=== PATIENT | female | born 1955 | race Caucasian/White ===

== ENCOUNTER 2018-02-16 11:57 | Inpatient (IN) | payer SELFPAY ==
[~2018-02-16] VITALS: Ht 167.6 cm; Wt 87.5 kg
[2018-02-16 13:27] LABS: HEMOGLOBIN 13.6 G/DL (11.9-15.5); MCH 31.8 PG (29.0-34.0); MCV 93.5 FL (83-99); PLATELET COUNT 269 K/uL (156-360); RBC DIS.WIDTH-CV 13.2 % (11.8-14.6); RBC DIS.WIDTH-SD 44.9 % (39-53); RED BLOOD COUNT 4.28 M/uL (3.80-5.20); WHITE BLOOD COUNT 10.1 K/uL (4.1-10.2)
[2018-02-16 13:33] LABS: INTER. NORMALIZED RATIO 1.2
[2018-02-16 13:35] LABS: PTT 29.1 SEC (25-37)
[2018-02-16 13:39] LABS: ALBUMIN 4.2 g/dL (3.2-4.8)
[2018-02-16 13:40] LABS: CHLORIDE 97 mEq/L (99-109); POTASSIUM 4.3 mEq/L (3.7-5.4); SODIUM 137 mEq/L (136-147)
[2018-02-16 13:42] LABS: GLUCOSE 110 mg/dL (70-99)
[2018-02-16 13:44] LABS: TOTAL BILIRUBIN 1.3 mg/dL (0.0-1.0)
[2018-02-16 13:45] LABS: ALKALINE PHOSPHATASE 99 IU/L (3-129)
[2018-02-16 13:46] LABS: CREATININE 0.8 mg/dL (0.6-1.3); GFR ESTIMATE (CALCULATED) > 59 mL/min/
[2018-02-16 13:47] LABS: AST (GOT) 46 IU/L (2-34); UREA NITROGEN (BUN) 15 mg/dL (9-23)
[2018-02-16 13:48] LABS: ALT (GPT) 38 IU/L (3-49)
[2018-02-16] MEDS ORDERED: ULTRAM50 MG PO (14:00)
[2018-02-16] MEDS ORDERED: FLEXERIL10 MG PO (14:00)
[2018-02-16] MEDS ORDERED: COLACE100 MG PO (14:01)
[2018-02-16] MEDS ORDERED: ALEVE220 MG PO (14:02)
[2018-02-16] MEDS ORDERED: BIOFREEZE TP (14:02)
[2018-02-16] MEDS ORDERED: ALEVE PM CAPLE1 EACH PO (14:03)
[2018-02-16 14:34] LABS: APPEARANCE SL.HAZY ((CLEAR)); BILIRUBIN NEGATIVE; BLOOD SMALL; COLOR YELLOW ((YELLOW)); GLUCOSE (STRIP) NEGATIVE; KETONES 5; LEUKOCYTES NEGATIVE; NITRITE NEGATIVE; PROTEIN (STRIP) NEGATIVE
[2018-02-16 14:43] LABS: BACTERIA NONE SEEN /HPF; EPITHELIAL CELLS RARE /HPF; MUCUS TRACE /LPF; RED BLOOD CELLS 0-5 /HPF (0-5); UCUL ADDED? NO; WHITE BLOOD CELLS 0-5 /HPF (0-5)
[2018-02-16 19:43] VITALS: BP 153/80
[2018-02-16 23:55] VITALS: BP 107/60
[2018-02-17 03:46] VITALS: BP 120/58
[2018-02-17 05:56] LABS: HEMATOCRIT 35.2 % (36.0-46.0); HEMOGLOBIN 11.7 G/DL (11.9-15.5); MCH 31.3 PG (29.0-34.0); MCHC 33.2 G/DL (30.0-36.0); MCV 94.1 FL (83-99); PLATELET COUNT 274 K/uL (156-360); RBC DIS.WIDTH-CV 13.1 % (11.8-14.6); RED BLOOD COUNT 3.74 M/uL (3.80-5.20); WHITE BLOOD COUNT 6.1 K/uL (4.1-10.2)
[2018-02-17 06:20] LABS: A/G RATIO 1.1 (1.1-1.8); ALBUMIN 3.3 G/DL (3.2-4.8); ALBUMIN 3.3 G/DL (3.4-5.0); ALKALINE PHOSPHATASE 77 IU/L (3-129); ALT (GPT) 25 IU/L (3-49); AST (GOT) 29 IU/L (2-34); CHLORIDE 103 MEQ/L (99-109); CREATININE 0.6 MG/DL (0.6-1.3); GFR ESTIMATE (CALCULATED) > 59 mL/min/; GLOBULINS 3.1 G/DL (2.3-3.5); GLUCOSE 140 mg/dL (70-99); IMMUNOGLOBULIN G 1208 MG/DL (650-1600); IMMUNOGLOBULIN M 84 MG/DL (50-300); POTASSIUM 4.5 MEQ/L (3.7-5.4); SODIUM 139 MEQ/L (136-147); TOTAL BILIRUBIN 0.7 MG/DL (0.0-1.0); TOTAL PROTEIN 6.4 G/DL (6.4-8.2); TOTAL PROTEIN 6.4 G/DL (6.4-8.3); UREA NITROGEN (BUN) 14 mg/dL (9-23)
[2018-02-17 08:00] VITALS: BP 127/65
[2018-02-17 11:36] VITALS: BP 130/72
[2018-02-17 17:50] VITALS: BP 140/85
[2018-02-18] VITALS (7 sets, daily range): BP systolic 106–133; BP diastolic 56–81
[2018-02-18 07:59] LABS: HEMATOCRIT 31.4 % (36.0-46.0); HEMOGLOBIN 10.5 G/DL (11.9-15.5); MCH 31.4 PG (29.0-34.0); MCHC 33.4 G/DL (30.0-36.0); PLATELET COUNT 290 K/uL (156-360); RBC DIS.WIDTH-CV 13.3 % (11.8-14.6); RBC DIS.WIDTH-SD 45.9 % (39-53); RED BLOOD COUNT 3.34 M/uL (3.80-5.20); WHITE BLOOD COUNT 11.8 K/uL (4.1-10.2)
[2018-02-18 08:24] LABS: CHLORIDE 106 MEQ/L (99-109); CREATININE 0.7 MG/DL (0.6-1.3); GFR ESTIMATE (CALCULATED) > 59 mL/min/; GLUCOSE 138 mg/dL (70-99); POTASSIUM 4.4 MEQ/L (3.7-5.4); SODIUM 137 MEQ/L (136-147); UREA NITROGEN (BUN) 20 mg/dL (9-23)
[2018-02-18 14:23] LABS: ALBUMIN 3.01 G/DL (3.6-4.9); ALPHA-1 GLOBULIN 0.32 G/DL (0.15-0.40); BETA-GLOBULIN 0.97 G/DL (0.65-1.15)
[2018-02-19 00:06] VITALS: BP 126/75
[2018-02-19 04:27] VITALS: BP 138/90
[2018-02-19 08:09] VITALS: BP 116/64
[2018-02-19 17:22] VITALS: BP 138/77
[2018-02-20 00:03] VITALS: BP 123/80
[2018-02-20 04:30] VITALS: BP 168/86
[2018-02-20 07:41] VITALS: BP 103/61
[2018-02-20 12:00] VITALS: BP 131/80
[2018-02-20 19:13] VITALS: BP 130/67
[2018-02-21 00:03] VITALS: BP 116/75
[2018-02-21 03:34] VITALS: BP 138/84
[2018-02-21 06:23] LABS: CHLORIDE 103 MEQ/L (99-109); CREATININE 0.6 MG/DL (0.6-1.3); GFR ESTIMATE (CALCULATED) > 59 mL/min/; GLUCOSE 133 mg/dL (70-99); POTASSIUM 4.2 MEQ/L (3.7-5.4); SODIUM 138 MEQ/L (136-147); UREA NITROGEN (BUN) 20 mg/dL (9-23)
[2018-02-21 07:57] VITALS: BP 166/95
[2018-02-21 08:16] LABS: BASOPHIL (%) 0.1 % (0-1); EOSINOPHIL (%) 0 % (0-5); HEMATOCRIT 32.9 % (36.0-46.0); LYMPHOCYTE (%) 13.1 % (15-42); MCH 31.4 PG (29.0-34.0); MCHC 33.4 G/DL (30.0-36.0); MONOCYTE (%) 5.7 % (3-12); MONOCYTE COUNT 0.4 K/uL (0-0.8); NEUTROPHIL (%) 80.1 % (45-76); NEUTROPHIL COUNT 5.8 K/uL (1.8-6.4); PLATELET COUNT 244 K/uL (156-360); RBC DIS.WIDTH-CV 13.1 % (11.8-14.6); WHITE BLOOD COUNT 7.2 K/uL (4.1-10.2)
[2018-02-21 09:14] LABS: BASOPHIL (%) 0 % (0-1); EOSINOPHIL (%) 0 % (0-5); HEMATOCRIT 33.3 % (36.0-46.0); HEMOGLOBIN 11.1 G/DL (11.9-15.5); IMMATURE GRANULOCYTE (%) 1.5 % (0.0-0.7); LYMPHOCYTE (%) 13.2 % (15-42); MCH 31.1 PG (29.0-34.0); MCHC 33.3 G/DL (30.0-36.0); MCV 93.3 FL (83-99); MONOCYTE (%) 5.3 % (3-12); MONOCYTE COUNT 0.4 K/uL (0-0.8); NEUTROPHIL COUNT 5.8 K/uL (1.8-6.4); PLATELET COUNT 244 K/uL (156-360); RBC DIS.WIDTH-SD 44.5 % (39-53); RED BLOOD COUNT 3.57 M/uL (3.80-5.20); WHITE BLOOD COUNT 7.2 K/uL (4.1-10.2)
[2018-02-21 11:46] VITALS: BP 152/95
[2018-02-21 16:18] VITALS: BP 135/89
[2018-02-22 00:18] VITALS: BP 118/89
[2018-02-22 03:53] VITALS: BP 135/76
[2018-02-22 12:08] VITALS: BP 142/90
[2018-02-22 15:51] VITALS: BP 126/77
[2018-02-22 23:23] VITALS: BP 140/84
[2018-02-23 08:02] VITALS: BP 139/87
[2018-02-23 12:00] VITALS: BP 147/88
[2018-02-23 16:56] VITALS: BP 131/74
[2018-02-23 18:22] LABS: HEMATOCRIT 34.8 % (36.0-46.0); MCH 31.8 PG (29.0-34.0); MCHC 34.5 G/DL (30.0-36.0); MCV 92.3 FL (83-99); RBC DIS.WIDTH-CV 13.5 % (11.8-14.6); RBC DIS.WIDTH-SD 45.8 % (39-53); RED BLOOD COUNT 3.77 M/uL (3.80-5.20); WHITE BLOOD COUNT 18.2 K/uL (4.1-10.2)
[2018-02-23 18:24] LABS: PLATELET COUNT 356 K/uL (156-360)
[2018-02-23 18:45] LABS: INTER. NORMALIZED RATIO 1.3
[2018-02-23 18:48] LABS: PTT 25.7 SEC (25-37)
[2018-02-23 19:46] VITALS: BP 131/77
[2018-02-23 19:54] LABS: ALKALINE PHOSPHATASE 73 IU/L (3-129); ALT (GPT) 32 IU/L (3-49); AST (GOT) 31 IU/L (2-34); CHLORIDE 96 MEQ/L (99-109); CREATININE 0.6 MG/DL (0.6-1.3); GFR ESTIMATE (CALCULATED) > 59 mL/min/; GLUCOSE 106 mg/dL (70-99); MAGNESIUM 2.5 mg/dl (1.3-2.7); PHOSPHORUS 3.1 mg/dL (2.5-4.9); POTASSIUM 4.5 MEQ/L (3.7-5.4); SODIUM 132 MEQ/L (136-147); UREA NITROGEN (BUN) 22 mg/dL (9-23)
[2018-02-23 19:55] LABS: TOTAL BILIRUBIN 1.2 MG/DL (0.0-1.0)
[2018-02-24 03:30] VITALS: BP 141/79
[2018-02-24 05:07] LABS: HEMATOCRIT 31.1 % (36.0-46.0); HEMOGLOBIN 10.4 G/DL (11.9-15.5); MCH 31.4 PG (29.0-34.0); MCHC 33.4 G/DL (30.0-36.0); PLATELET COUNT 317 K/uL (156-360); RBC DIS.WIDTH-CV 13.5 % (11.8-14.6); RBC DIS.WIDTH-SD 46.5 % (39-53); RED BLOOD COUNT 3.31 M/uL (3.80-5.20); WHITE BLOOD COUNT 10.8 K/uL (4.1-10.2)
[2018-02-24 05:38] LABS: CHLORIDE 101 MEQ/L (99-109); CREATININE 0.7 MG/DL (0.6-1.3); GFR ESTIMATE (CALCULATED) > 59 mL/min/; GLUCOSE 127 mg/dL (70-99); POTASSIUM 4.2 MEQ/L (3.7-5.4); PREALBUMIN 7.8 mg/dL (10-40); SODIUM 132 MEQ/L (136-147); UREA NITROGEN (BUN) 25 mg/dL (9-23)
[2018-02-24 07:39] VITALS: BP 132/83
[2018-02-24 16:30] VITALS: BP 144/94
[2018-02-24 19:45] VITALS: BP 147/79
[2018-02-24 23:23] VITALS: BP 142/87
[2018-02-25 04:24] VITALS: BP 145/85
[2018-02-25 05:29] LABS: BASOPHIL (%) 0.2 % (0-1); EOSINOPHIL (%) 0 % (0-5); HEMOGLOBIN 9.3 G/DL (11.9-15.5); IMMATURE GRANULOCYTE (%) 0.7 % (0.0-0.7); LYMPHOCYTE (%) 6.8 % (15-42); LYMPHOCYTE COUNT 0.6 K/uL (1.0-2.8); MCH 31.5 PG (29.0-34.0); MCHC 33.2 G/DL (30.0-36.0); MCV 94.9 FL (83-99); MONOCYTE (%) 8.6 % (3-12); MONOCYTE COUNT 0.7 K/uL (0-0.8); NEUTROPHIL (%) 83.7 % (45-76); NEUTROPHIL COUNT 7.2 K/uL (1.8-6.4); PLATELET COUNT 260 K/uL (156-360); RBC DIS.WIDTH-CV 13.4 % (11.8-14.6); RED BLOOD COUNT 2.95 M/uL (3.80-5.20); WHITE BLOOD COUNT 8.6 K/uL (4.1-10.2)
[2018-02-25 05:57] LABS: ALKALINE PHOSPHATASE 45 IU/L (3-129); ALT (GPT) 23 IU/L (3-49); AST (GOT) 24 IU/L (2-34); CHLORIDE 103 MEQ/L (99-109); CREATININE 0.5 MG/DL (0.6-1.3); DIRECT BILIRUBIN 0.2 mg/dL (0.0-0.3); GFR ESTIMATE (CALCULATED) > 59 mL/min/; GLUCOSE 121 mg/dL (70-99); PHOSPHORUS 2.2 mg/dL (2.5-4.9); POTASSIUM 4.6 MEQ/L (3.7-5.4); SODIUM 134 MEQ/L (136-147); TRIGLYCERIDES 60 MG/DL (Normal: <150); UREA NITROGEN (BUN) 19 mg/dL (9-23)
[2018-02-25 06:09] LABS: MAGNESIUM 2.1 mg/dl (1.3-2.7); TOTAL BILIRUBIN 0.6 MG/DL (0.0-1.0); TOTAL PROTEIN 3.7 G/DL (6.4-8.3)
[2018-02-25 07:28] VITALS: BP 163/89
[2018-02-25 11:11] VITALS: BP 131/81
[2018-02-25 15:40] VITALS: BP 140/87
[2018-02-25 19:30] VITALS: BP 135/82
[2018-02-25 23:38] VITALS: BP 122/68
[2018-02-26 03:20] VITALS: BP 136/84
[2018-02-26 05:52] LABS: HEMATOCRIT 26.8 % (36.0-46.0); HEMOGLOBIN 8.9 G/DL (11.9-15.5); MCH 31.3 PG (29.0-34.0); MCHC 33.2 G/DL (30.0-36.0); MCV 94.4 FL (83-99); PLATELET COUNT 334 K/uL (156-360); RBC DIS.WIDTH-CV 13.7 % (11.8-14.6); RBC DIS.WIDTH-SD 46.9 % (39-53); RED BLOOD COUNT 2.84 M/uL (3.80-5.20); WHITE BLOOD COUNT 12.4 K/uL (4.1-10.2)
[2018-02-26 06:30] LABS: CHLORIDE 102 MEQ/L (99-109); CREATININE 0.4 MG/DL (0.6-1.3); GFR ESTIMATE (CALCULATED) > 59 mL/min/; MAGNESIUM 1.8 mg/dl (1.3-2.7); PHOSPHORUS 2.1 mg/dL (2.5-4.9); SODIUM 135 MEQ/L (136-147); UREA NITROGEN (BUN) 17 mg/dL (9-23)
[2018-02-26 06:40] LABS: GLUCOSE 78 mg/dL (70-99); POTASSIUM 3.6 MEQ/L (3.7-5.4)
[2018-02-26 07:08] VITALS: BP 126/76
[2018-02-26 11:45] VITALS: BP 130/72
[2018-02-26 19:45] VITALS: BP 138/73
[2018-02-27] VITALS (7 sets, daily range): BP systolic 120–139; BP diastolic 74–87
[2018-02-27 05:56] LABS: HEMATOCRIT 26.5 % (36.0-46.0); HEMOGLOBIN 8.9 G/DL (11.9-15.5); MCH 31.1 PG (29.0-34.0); MCHC 33.6 G/DL (30.0-36.0); MCV 92.7 FL (83-99); PLATELET COUNT 342 K/uL (156-360); RBC DIS.WIDTH-CV 13.7 % (11.8-14.6); RBC DIS.WIDTH-SD 46.5 % (39-53); RED BLOOD COUNT 2.86 M/uL (3.80-5.20); WHITE BLOOD COUNT 11.4 K/uL (4.1-10.2)
[2018-02-27 06:25] LABS: CHLORIDE 102 MEQ/L (99-109); CREATININE 0.4 MG/DL (0.6-1.3); GFR ESTIMATE (CALCULATED) > 59 mL/min/; MAGNESIUM 1.8 mg/dl (1.3-2.7); PHOSPHORUS 2.2 mg/dL (2.5-4.9); POTASSIUM 3.4 MEQ/L (3.7-5.4); SODIUM 133 MEQ/L (136-147); UREA NITROGEN (BUN) 11 mg/dL (9-23)
[2018-02-27 06:34] LABS: GLUCOSE 114 mg/dL (70-99)
[2018-02-28 04:12] VITALS: BP 139/83
[2018-02-28 05:39] LABS: HEMATOCRIT 25.2 % (36.0-46.0); HEMOGLOBIN 8.4 G/DL (11.9-15.5); MCH 30.5 PG (29.0-34.0); MCHC 33.3 G/DL (30.0-36.0); MCV 91.6 FL (83-99); PLATELET COUNT 333 K/uL (156-360); RBC DIS.WIDTH-CV 13.9 % (11.8-14.6); RBC DIS.WIDTH-SD 46.3 % (39-53); RED BLOOD COUNT 2.75 M/uL (3.80-5.20); WHITE BLOOD COUNT 10.4 K/uL (4.1-10.2)
[2018-02-28 06:01] LABS: CHLORIDE 102 MEQ/L (99-109); CREATININE 0.3 MG/DL (0.6-1.3); GFR ESTIMATE (CALCULATED) > 59 mL/min/; GLUCOSE 112 mg/dL (70-99); POTASSIUM 3.8 MEQ/L (3.7-5.4); SODIUM 133 MEQ/L (136-147); UREA NITROGEN (BUN) 7 mg/dL (9-23)
[2018-02-28 09:00] VITALS: BP 122/78
[2018-02-28 11:58] VITALS: BP 126/79
[2018-02-28 15:59] VITALS: BP 135/82
[2018-02-28 20:30] VITALS: BP 163/79
[2018-03-01] VITALS (7 sets, daily range): BP systolic 114–127; BP diastolic 57–72
[2018-03-01 05:32] LABS: HEMATOCRIT 23.3 % (36.0-46.0); MCH 31.6 PG (29.0-34.0); MCHC 34.3 G/DL (30.0-36.0); MCV 92.1 FL (83-99); PLATELET COUNT 312 K/uL (156-360); RBC DIS.WIDTH-CV 14.4 % (11.8-14.6); RBC DIS.WIDTH-SD 47.1 % (39-53); RED BLOOD COUNT 2.53 M/uL (3.80-5.20); WHITE BLOOD COUNT 9.3 K/uL (4.1-10.2)
[2018-03-01 05:57] LABS: CHLORIDE 102 MEQ/L (99-109); CREATININE 0.4 MG/DL (0.6-1.3); GFR ESTIMATE (CALCULATED) > 59 mL/min/; GLUCOSE 99 mg/dL (70-99); POTASSIUM 3.7 MEQ/L (3.7-5.4); SODIUM 135 MEQ/L (136-147); UREA NITROGEN (BUN) 4 mg/dL (9-23)
[2018-03-01 07:40] LABS: C DIFF TOXIN NEGATIVE (NEGATIVE)
[2018-03-02 03:40] VITALS: BP 115/63
[2018-03-02 07:25] VITALS: BP 114/76
[2018-03-02 10:42] LABS: ANTI-HEPATITIS B CORE (TOTAL) Nonreactive; HEPATITIS B SURFACE ANTIGEN Nonreactive
[2018-03-02 10:43] LABS: HEPATITIS B SURFACE ANTIBODY Nonreactive
[2018-03-02 16:25] VITALS: BP 130/78
[2018-03-02 23:48] VITALS: BP 123/63; BP 173/65
[2018-03-03 07:52] VITALS: BP 137/89
[2018-03-03 13:10] LABS: HEMATOCRIT 27.5 % (36.0-46.0); HEMOGLOBIN 9.6 G/DL (11.9-15.5); MCH 31.5 PG (29.0-34.0); MCHC 34.9 G/DL (30.0-36.0); MCV 90.2 FL (83-99); RBC DIS.WIDTH-CV 15.6 % (11.8-14.6); RBC DIS.WIDTH-SD 47.9 % (39-53); WHITE BLOOD COUNT 14.8 K/uL (4.1-10.2)
[2018-03-03 13:14] LABS: PLATELET COUNT 446 K/uL (156-360); RED BLOOD COUNT 3.05 M/uL (3.80-5.20)
[2018-03-03 16:11] VITALS: BP 117/82
[2018-03-03 17:08] LABS: APPEARANCE SL.HAZY ((CLEAR)); BILIRUBIN NEGATIVE; BLOOD SMALL; COLOR YELLOW ((YELLOW)); GLUCOSE (STRIP) NEGATIVE; KETONES NEGATIVE; LEUKOCYTES TRACE; NITRITE NEGATIVE; PROTEIN (STRIP) NEGATIVE; SPECIFIC GRAVITY 1.009 (1.000-1.030); UROBILINOGEN 0.2 MG/DL (0.2-1.0)
[2018-03-03 17:38] LABS: BACTERIA 1+ /HPF; EPITHELIAL CELLS RARE /HPF; HYALINE CASTS 0-5 /LPF; MUCUS 1+ /LPF; UCUL ADDED? YES
[2018-03-03 22:38] VITALS: BP 125/81
[2018-03-04 07:13] LABS: HEMATOCRIT 23.1 % (36.0-46.0); HEMOGLOBIN 8.2 G/DL (11.9-15.5); MCH 31.8 PG (29.0-34.0); MCHC 35.5 G/DL (30.0-36.0); MCV 89.5 FL (83-99); PLATELET COUNT 338 K/uL (156-360); RBC DIS.WIDTH-CV 15.6 % (11.8-14.6); RBC DIS.WIDTH-SD 47.8 % (39-53); RED BLOOD COUNT 2.58 M/uL (3.80-5.20); WHITE BLOOD COUNT 9.3 K/uL (4.1-10.2)
[2018-03-04 07:39] LABS: BASOPHIL (%) 0.4 % (0-1); EOSINOPHIL (%) 1.4 % (0-5); EOSINOPHIL COUNT 0.1 K/uL (0-0.3); IMMATURE GRANULOCYTE (%) 1.1 % (0.0-0.7); LYMPHOCYTE (%) 17.4 % (15-42); LYMPHOCYTE COUNT 1.6 K/uL (1.0-2.8); MONOCYTE (%) 6.6 % (3-12); MONOCYTE COUNT 0.6 K/uL (0-0.8); NEUTROPHIL (%) 73.1 % (45-76); NEUTROPHIL COUNT 6.8 K/uL (1.8-6.4)
[2018-03-04 07:47] LABS: CHLORIDE 99 MEQ/L (99-109); CREATININE 0.4 MG/DL (0.6-1.3); GFR ESTIMATE (CALCULATED) > 59 mL/min/; GLUCOSE 108 mg/dL (70-99); SODIUM 137 MEQ/L (136-147); UREA NITROGEN (BUN) 3 mg/dL (9-23)
[2018-03-04 07:48] LABS: POTASSIUM 2.9 MEQ/L (3.7-5.4)
[2018-03-04 08:20] VITALS: BP 118/70
[2018-03-04 12:27] VITALS: BP 118/74
[2018-03-04 16:54] VITALS: BP 115/71
[2018-03-04 20:05] VITALS: BP 125/86
[2018-03-04 23:26] VITALS: BP 129/64
[2018-03-05 03:30] VITALS: BP 113/64
[2018-03-05 07:27] VITALS: BP 102/54
[2018-03-05 09:41] LABS: CHLORIDE 101 MEQ/L (99-109); CREATININE 0.4 MG/DL (0.6-1.3); GFR ESTIMATE (CALCULATED) > 59 mL/min/; GLUCOSE 105 mg/dL (70-99); POTASSIUM 3.4 MEQ/L (3.7-5.4); SODIUM 139 MEQ/L (136-147); UREA NITROGEN (BUN) 3 mg/dL (9-23)
[2018-03-05 16:21] VITALS: BP 119/69
[2018-03-06 00:10] VITALS: BP 108/61
[2018-03-06 05:59] LABS: HEMATOCRIT 22.1 % (36.0-46.0); HEMOGLOBIN 7.6 G/DL (11.9-15.5); MCH 31.3 PG (29.0-34.0); MCHC 34.4 G/DL (30.0-36.0); MCV 90.9 FL (83-99); PLATELET COUNT 331 K/uL (156-360); RBC DIS.WIDTH-CV 16.7 % (11.8-14.6); RED BLOOD COUNT 2.43 M/uL (3.80-5.20); WHITE BLOOD COUNT 8.7 K/uL (4.1-10.2)
[2018-03-06 06:35] LABS: BASOPHIL (%) 0.3 % (0-1); EOSINOPHIL COUNT 0.1 K/uL (0-0.3); IMMATURE GRANULOCYTE (%) 0.7 % (0.0-0.7); LYMPHOCYTE COUNT 1.8 K/uL (1.0-2.8); MONOCYTE (%) 7.3 % (3-12); MONOCYTE COUNT 0.6 K/uL (0-0.8); NEUTROPHIL (%) 69.7 % (45-76)
[2018-03-06 08:35] VITALS: BP 111/70
[2018-03-06 15:55] VITALS: BP 117/71
[2018-03-06 23:13] VITALS: BP 128/62
[2018-03-07 05:36] LABS: BASOPHIL (%) 0.4 % (0-1); EOSINOPHIL (%) 1.3 % (0-5); EOSINOPHIL COUNT 0.1 K/uL (0-0.3); HEMATOCRIT 24.1 % (36.0-46.0); HEMOGLOBIN 8.2 G/DL (11.9-15.5); IMMATURE GRANULOCYTE (%) 0.5 % (0.0-0.7); LYMPHOCYTE (%) 16.3 % (15-42); LYMPHOCYTE COUNT 1.3 K/uL (1.0-2.8); MCH 31.2 PG (29.0-34.0); MCV 91.6 FL (83-99); MONOCYTE (%) 8.7 % (3-12); MONOCYTE COUNT 0.7 K/uL (0-0.8); NEUTROPHIL (%) 72.8 % (45-76); NEUTROPHIL COUNT 5.7 K/uL (1.8-6.4); PLATELET COUNT 327 K/uL (156-360); RBC DIS.WIDTH-CV 17.3 % (11.8-14.6); RBC DIS.WIDTH-SD 55.4 % (39-53); RED BLOOD COUNT 2.63 M/uL (3.80-5.20); WHITE BLOOD COUNT 7.8 K/uL (4.1-10.2)
[2018-03-07 06:00] LABS: CHLORIDE 103 MEQ/L (99-109); CREATININE 0.4 MG/DL (0.6-1.3); GFR ESTIMATE (CALCULATED) > 59 mL/min/; GLUCOSE 105 mg/dL (70-99); IRON 20 MCG/DL (35-150); POTASSIUM 2.9 MEQ/L (3.7-5.4); SODIUM 137 MEQ/L (136-147); UREA NITROGEN (BUN) 3 mg/dL (9-23)
[2018-03-07 07:10] VITALS: BP 117/66
[2018-03-07 16:06] VITALS: BP 124/74
[2018-03-07 18:15] VITALS: BP 133/82
[2018-03-08 00:56] VITALS: BP 134/78
[2018-03-08 05:59] LABS: BASOPHIL (%) 0.3 % (0-1); EOSINOPHIL (%) 0.8 % (0-5); EOSINOPHIL COUNT 0.1 K/uL (0-0.3); HEMATOCRIT 22.7 % (36.0-46.0); HEMOGLOBIN 7.7 G/DL (11.9-15.5); IMMATURE GRANULOCYTE (%) 0.5 % (0.0-0.7); LYMPHOCYTE (%) 18.6 % (15-42); LYMPHOCYTE COUNT 1.1 K/uL (1.0-2.8); MCH 31.4 PG (29.0-34.0); MCHC 33.9 G/DL (30.0-36.0); MCV 92.7 FL (83-99); MONOCYTE (%) 9.4 % (3-12); MONOCYTE COUNT 0.6 K/uL (0-0.8); NEUTROPHIL (%) 70.4 % (45-76); NEUTROPHIL COUNT 4.3 K/uL (1.8-6.4); PLATELET COUNT 291 K/uL (156-360); RBC DIS.WIDTH-CV 17.9 % (11.8-14.6); RBC DIS.WIDTH-SD 58.8 % (39-53); RED BLOOD COUNT 2.45 M/uL (3.80-5.20); WHITE BLOOD COUNT 6.1 K/uL (4.1-10.2)
[2018-03-08 07:48] VITALS: BP 120/67
[2018-03-08 12:12] LABS: CHLORIDE 105 MEQ/L (99-109); CREATININE 0.4 MG/DL (0.6-1.3); GFR ESTIMATE (CALCULATED) > 59 mL/min/; GLUCOSE 96 mg/dL (70-99); SODIUM 139 MEQ/L (136-147); UREA NITROGEN (BUN) 3 mg/dL (9-23)
[2018-03-08 12:13] LABS: POTASSIUM 3.6 MEQ/L (3.7-5.4)
[2018-03-08 16:26] VITALS: BP 133/81
[2018-03-08 23:18] VITALS: BP 152/85
[2018-03-09 06:48] LABS: BASOPHIL (%) 0.6 % (0-1); EOSINOPHIL COUNT 0.1 K/uL (0-0.3); HEMATOCRIT 24.6 % (36.0-46.0); HEMOGLOBIN 8.2 G/DL (11.9-15.5); IMMATURE GRANULOCYTE (%) 0.8 % (0.0-0.7); LYMPHOCYTE (%) 19.1 % (15-42); MCH 31.4 PG (29.0-34.0); MCHC 33.3 G/DL (30.0-36.0); MCV 94.3 FL (83-99); MONOCYTE (%) 10.6 % (3-12); MONOCYTE COUNT 0.5 K/uL (0-0.8); NEUTROPHIL (%) 67.9 % (45-76); NEUTROPHIL COUNT 3.5 K/uL (1.8-6.4); PLATELET COUNT 284 K/uL (156-360); RBC DIS.WIDTH-CV 18.5 % (11.8-14.6); RBC DIS.WIDTH-SD 61.6 % (39-53); RED BLOOD COUNT 2.61 M/uL (3.80-5.20); WHITE BLOOD COUNT 5.1 K/uL (4.1-10.2)
[2018-03-09 07:10] LABS: CHLORIDE 106 MEQ/L (99-109); CREATININE 0.4 MG/DL (0.6-1.3); GFR ESTIMATE (CALCULATED) > 59 mL/min/; GLUCOSE 86 mg/dL (70-99); POTASSIUM 3.4 MEQ/L (3.7-5.4); SODIUM 142 MEQ/L (136-147); UREA NITROGEN (BUN) 2 mg/dL (9-23)
[2018-03-09 08:35] VITALS: BP 120/62
[2018-03-09 16:29] VITALS: BP 107/53
[2018-03-09 23:40] VITALS: BP 102/63
[2018-03-10 06:47] LABS: HEMOGLOBIN 8.1 G/DL (11.9-15.5); MCH 31.6 PG (29.0-34.0); MCHC 33.8 G/DL (30.0-36.0); MCV 93.8 FL (83-99); RBC DIS.WIDTH-SD 62.6 % (39-53); RED BLOOD COUNT 2.56 M/uL (3.80-5.20); WHITE BLOOD COUNT 4.5 K/uL (4.1-10.2)
[2018-03-10 07:00] LABS: ALBUMIN 2.1 G/DL (3.2-4.8); CHLORIDE 104 MEQ/L (99-109); CREATININE 0.4 MG/DL (0.6-1.3); GFR ESTIMATE (CALCULATED) > 59 mL/min/; GLUCOSE 88 mg/dL (70-99); PHOSPHORUS 2.7 mg/dL (2.5-4.9); POTASSIUM 3.6 MEQ/L (3.7-5.4); PREALBUMIN 8.7 mg/dL (10-40); SODIUM 141 MEQ/L (136-147); UREA NITROGEN (BUN) 4 mg/dL (9-23)
[2018-03-10 07:14] LABS: LACTATE DEHYDROGENASE 332 IU/L (20-246)
[2018-03-10 07:17] LABS: ABS NEUTROPHIL COUNT 3.3; BAND NEUTROPHILS 1.8 % (0-8.0); EOSINOPHIL ABS CT 0; METAMYELOCYTES 0.9 %; MONOCYTES 2.6 % (0-9.0); PLAT.SUFFICIENCY ADEQUATE; PLATELET COUNT 220 K/uL (156-360); SEG.NEUTROPHILS 71.7 % (46.0-76.0); SMUDGE CELLS 5.3
[2018-03-10 10:32] VITALS: BP 123/65
[2018-03-10 13:20] VITALS: BP 123/73
[2018-03-10 16:11] VITALS: BP 123/90
[2018-03-10 22:39] VITALS: BP 124/73
[2018-03-11 07:10] VITALS: BP 133/80
[2018-03-11 16:55] VITALS: BP 109/69
[2018-03-12 00:27] VITALS: BP 115/60
[2018-03-12 06:08] LABS: HEMATOCRIT 23.8 % (36.0-46.0); HEMOGLOBIN 8.1 G/DL (11.9-15.5); MCH 31.9 PG (29.0-34.0); MCV 93.7 FL (83-99); PLATELET COUNT 239 K/uL (156-360); RBC DIS.WIDTH-CV 19.8 % (11.8-14.6); RBC DIS.WIDTH-SD 65.3 % (39-53); RED BLOOD COUNT 2.54 M/uL (3.80-5.20); RETIC HGB EQUIVALENT 34.8 (28-36); RETICULOCYTE COUNT 5.3 % (0.5-1.8); WHITE BLOOD COUNT 5.2 K/uL (4.1-10.2)
[2018-03-12 06:40] LABS: ALBUMIN 2.4 G/DL (3.2-4.8); ALKALINE PHOSPHATASE 75 IU/L (3-129); ALT (GPT) 30 IU/L (3-49); AST (GOT) 30 IU/L (2-34); CHLORIDE 102 MEQ/L (99-109); CREATININE 0.3 MG/DL (0.6-1.3); GFR ESTIMATE (CALCULATED) > 59 mL/min/; LACTATE DEHYDROGENASE 333 IU/L (20-246); POTASSIUM 3.2 MEQ/L (3.7-5.4); SODIUM 139 MEQ/L (136-147); TOTAL BILIRUBIN 0.5 MG/DL (0.0-1.0); TOTAL PROTEIN 5.4 G/DL (6.4-8.3); UREA NITROGEN (BUN) 7 mg/dL (9-23)
[2018-03-12 06:42] LABS: GLUCOSE 137 mg/dL (70-99)
[2018-03-12 07:03] LABS: BASOPHIL (%) 0 % (0-1); EOSINOPHIL (%) 0 % (0-5); IMMATURE GRANULOCYTE (%) 0.8 % (0.0-0.7); LYMPHOCYTE (%) 7.9 % (15-42); LYMPHOCYTE COUNT 0.4 K/uL (1.0-2.8); MONOCYTE (%) 4.2 % (3-12); MONOCYTE COUNT 0.2 K/uL (0-0.8); NEUTROPHIL (%) 87.1 % (45-76); NEUTROPHIL COUNT 4.6 K/uL (1.8-6.4)
[2018-03-12 07:20] VITALS: BP 127/70
[2018-03-12 11:31] LABS: PHOSPHORUS 2.7 mg/dL (2.5-4.9)
[2018-03-12 15:45] VITALS: BP 126/63
[2018-03-12 23:01] VITALS: BP 123/72
[2018-03-13 06:15] LABS: CHLORIDE 102 MEQ/L (99-109); CREATININE 0.4 MG/DL (0.6-1.3); GFR ESTIMATE (CALCULATED) > 59 mL/min/; POTASSIUM 3.2 MEQ/L (3.7-5.4); SODIUM 142 MEQ/L (136-147); UREA NITROGEN (BUN) 13 mg/dL (9-23)
[2018-03-13 06:17] LABS: GLUCOSE 94 mg/dL (70-99)
[2018-03-13 07:10] VITALS: BP 138/72
[2018-03-13 15:45] VITALS: BP 133/69
[2018-03-14 00:27] VITALS: BP 134/79
[2018-03-14 05:47] LABS: HEMATOCRIT 24.3 % (36.0-46.0); HEMOGLOBIN 8.3 G/DL (11.9-15.5); MCH 31.8 PG (29.0-34.0); MCHC 34.2 G/DL (30.0-36.0); MCV 93.1 FL (83-99); PLATELET COUNT 279 K/uL (156-360); RBC DIS.WIDTH-SD 66.3 % (39-53); RED BLOOD COUNT 2.61 M/uL (3.80-5.20); WHITE BLOOD COUNT 13.1 K/uL (4.1-10.2)
[2018-03-14 06:23] LABS: CHLORIDE 102 MEQ/L (99-109); CREATININE 0.4 MG/DL (0.6-1.3); GFR ESTIMATE (CALCULATED) > 59 mL/min/; GLUCOSE 81 mg/dL (70-99); POTASSIUM 3.5 MEQ/L (3.7-5.4); SODIUM 138 MEQ/L (136-147); UREA NITROGEN (BUN) 14 mg/dL (9-23)
[2018-03-14 07:35] VITALS: BP 134/72
[2018-03-14 12:18] LABS: MAGNESIUM 1.8 mg/dl (1.3-2.7)
[2018-03-14] MEDS ORDERED: TIZANIDINE HCL4 MG PO (12:18)
[2018-03-14] MEDS ORDERED: LOVENOX40 MG/0.4 SC (12:18)
[2018-03-14] MEDS ORDERED: NIFEREX-150,FE150 MG PO (12:18)
[2018-03-14] MEDS ORDERED: FLUCONAZOLE200 MG PO (12:18)
[2018-03-14] MEDS ORDERED: GRANIX480 MCG/0. SC (12:19)
[2018-03-14] MEDS ORDERED: GABAPENTIN300 MG PO (12:19)
[2018-03-14] MEDS ORDERED: FIBER TABS625 MG PO (12:20)
[2018-03-14] MEDS ORDERED: MAG-AL PLUS SUS30 ML PO (12:20)
[2018-03-14] MEDS ORDERED: DOCUSATE SODIU100 MG PO (12:20)
[2018-03-14] MEDS ORDERED: ZOFRAN8 MG PO (12:21)
[2018-03-14] MEDS ORDERED: FLORASTOR250 MG PO (12:22)
[2018-03-14] MEDS ORDERED: COMPAZINE10 MG PO (12:22)
[2018-03-14] MEDS ORDERED: PANTOPRAZOLE SO40 MG PO (12:22)
[2018-03-14] MEDS ORDERED: PREDNISONE50 MG PO (12:23)
[2018-03-14] MEDS ORDERED: HYDROCORTISONE30 G2 PR (12:23)
[2018-03-14] MEDS ORDERED: HYDROCODON-ACE1 EAC7 PO (12:23)
[2018-03-14] MEDS ORDERED: Salonpas 4% Patch TD (12:23)
== END 2018-03-14 15:03 | DRG 820 ==
LOC: EME 11:57 → 3EAST 16:08 → 5EAST 16:08 → EDOF 16:08 → 2EAST 16:08 → ENRESERV 16:12 → 5EAST 19:17 → ENRESERV 02-17 15:47 → 5EAST 02-17 17:26 → ENRESERV 02-17 18:44 → 3EAST 02-18 00:15 → ENRESERV 02-23 23:42 → 3EAST 02-24 02:00 → 4EAST 02-24 03:48 → ENRESERV 03-01 13:06 → 2EAST 03-01 16:17 → ENRESERV 03-10 11:15 → 5EAST 03-10 15:48 → ENPENDDIS 03-14 → EDPENDDISTM 03-14 15:00 → 5EAST 03-14 15:03
PROVIDERS: Emergency Medicine Emergency Medical Services; Family Medicine; Hospitalist; Internal Medicine; Internal Medicine Medical Oncology; Student in an Organized Health Care Education/Training Program; Surgery
PROC: 01NB0ZZ Release Lumbar Nerve, Open Approach (ICD-10-PCS; principal; 2018-02-17)
PROC: 0SG00K1 Fusion of Lumbar Vertebral Joint with Nonautologous Tissue Substitute, Posterior Approach, Posterior Column, Open Approach (ICD-10-PCS; principal; 2018-02-17)
PROC: 00BT0ZX Excision of Spinal Meninges, Open Approach, Diagnostic (ICD-10-PCS; principal; 2018-02-17)
PROC: 0SG30K1 Fusion of Lumbosacral Joint with Nonautologous Tissue Substitute, Posterior Approach, Posterior Column, Open Approach (ICD-10-PCS; principal; 2018-02-17)
PROC: 0DBB0ZZ Excision of Ileum, Open Approach (ICD-10-PCS; 2018-02-23)
PROC: 0DNB0ZZ Release Ileum, Open Approach (ICD-10-PCS; 2018-02-23)
PROC: 0DBA0ZZ Excision of Jejunum, Open Approach (ICD-10-PCS; 2018-02-23)
PROC: 3E0336Z Introduction of Nutritional Substance into Peripheral Vein, Percutaneous Approach (ICD-10-PCS; 2018-02-24)
PROC: 0W9F3ZX Drainage of Abdominal Wall, Percutaneous Approach, Diagnostic (ICD-10-PCS; 2018-03-06)
PROC: 02HV33Z Insertion of Infusion Device into Superior Vena Cava, Percutaneous Approach (ICD-10-PCS; 2018-03-10)
PROC: 0JH63WZ Insertion of Totally Implantable Vascular Access Device into Chest Subcutaneous Tissue and Fascia, Percutaneous Approach (ICD-10-PCS; 2018-03-10)
PROC: 3E04305 Introduction of Other Antineoplastic into Central Vein, Percutaneous Approach (ICD-10-PCS; 2018-03-11)
DX: C83.38 Diffuse large B-cell lymphoma, lymph nodes of multiple sites (principal); K63.1 Perforation of intestine (nontraumatic); M84.58XA Pathological fracture in neoplastic disease, other specified site, initial encounter for fracture; K65.1 Peritoneal abscess; Z99.3 Dependence on wheelchair; R33.9 Retention of urine, unspecified; I10 Essential (primary) hypertension; K56.41 Fecal impaction; E66.9 Obesity, unspecified; Z68.32 Body mass index [BMI] 32.0-32.9, adult; G83.4 Cauda equina syndrome; M43.16 Spondylolisthesis, lumbar region; G95.29 Other cord compression; E46 Unspecified protein-calorie malnutrition; D53.9 Nutritional anemia, unspecified; D62 Acute posthemorrhagic anemia; E86.0 Dehydration; E77.8 Other disorders of glycoprotein metabolism; K66.0 Peritoneal adhesions (postprocedural) (postinfection); I87.8 Other specified disorders of veins; M21.372 Foot drop, left foot; M21.371 Foot drop, right foot; E87.6 Hypokalemia; N39.0 Urinary tract infection, site not specified; K21.9 Gastro-esophageal reflux disease without esophagitis; Z51.11 Encounter for antineoplastic chemotherapy; K64.9 Unspecified hemorrhoids; K76.0 Fatty (change of) liver, not elsewhere classified
CPT/HCPCS: 10030; 49406; 71045; 71260; 72100; 72156; 72157; 74176; 74177; 75989; 76000; 76937; 77290; 80048; 80053; 80076; 81003; 82040; 82330; 82607; 82784; 82948; 83540; 83615; 83735; 83883 90; 84100; 84132 91; 84134; 84165; 84478; 84550; 84630 90; 85014; 85018; 85025; 85025 91; 85027; 85046; 85610; 85730; 86334; 86704; 86706; 86850; 86900; 86901; 86920; 87040; 87070; 87075; 87076; 87086; 87106; 87185; 87205; 87340; 87493; 88305; 88307; 88331; 88341 TC; 88342 TC; 93005; 93306; 93970; 94799; 97530 GO; 97530 GP; 99281; 99285; A6214; C1751; C9463; J0690; J1100; J1170; J1200; J1447; J1580; J1650; J2250; J2405; J2469; J2543; J2710; J2930; J3010; J3370; J3420; J3480; J7030; J7040; J7050; J7120; J7512; J7643; J8540; J9000; J9070; J9310; J9370; Q0138; S0020; S0074